=== PATIENT | female | born 1980 | race Caucasian/White ===

== ENCOUNTER 2019-07-07 17:31 | Observation (INO) ==
[2019-07-07] MEDS ORDERED: *HR* OxyCODONE/APAP 5/325 TABLET PO ONE (18:07)
[2019-07-07] MEDS ORDERED: Lidocaine 1% 20 ML MDV INFILT ONE (18:07)
[2019-07-07] MEDS ORDERED: Tdap (Boostrix) Vaccine 0.5 ML SYRINGE IM ONE (18:08)
--- NOTE | 2019-07-07 18:12 | Emergency Department Note ---
Disposition Clinical Impression: Abscess of skin or subcutaneous tissue Qualifiers: Site of cutaneous abscess: extremity Site of cutaneous abscess of extremity: upper extremity Laterality: right Qualified Code(s): L02.413 - Cutaneous abscess of right upper limb Disposition: Admitted As Inpatient Condition: Fair Time of Disposition: 20:57 Skin/Abscess/FB HPI Chief complaint: ED Skin/Abscess/Foreign Body Stated complaint: abscess Time Seen by Provider: 07/07/19 18:02 Source: patient Mode of arrival: ambulatory Limitations: no limitations Nursing Notes Reviewed: Yes Vital Signs Reviewed: Yes HPI Narrative: Nontoxic-appearing 39-year-old female presents for evaluation of a abscess to the medial aspect of the right antecubital region. She states that she was seen on 07/02/19 at this facility for the same. At that time, an ultrasound to a discernible drainable fluid collection. Findings consistent with cellulitis. She was discharged home on clindamycin and tramadol. She states she has been taking the clindamycin but never got tramadol filled. She denies any fever or chills but does complain of some nausea. Tetanus immunization status is not up-to-date. She denies any IV drug use. Pt Subjective Complaint: abscess/boil Onset (ago): day(s) Location: RUE Severity: moderate Severity scale (1-10): 5 Quality: aching Consistency: constant, Worsening Improves with: none Worsens with: palpation, movement Associated symptoms: Reports: nausea. Denies: fever, chills Treatments prior to arrival: antibiotic Home Medications Medication Instructions Recorded Confirmed FLUoxetine HCl [PROzac] 20 mg PO DAILY 07/07/19 07/07/19 Previous Rx's Medication Instructions Recorded Clindamycin [Cleocin] 300 mg PO Q6HR 10 Days #80 capsule 07/02/19 Allergies Allergy/AdvReac Type Severity Reaction Status Date / Time aspirin Allergy See Verified 07/11/15 13:21 Comments naproxen Allergy Itching Verified 07/11/15 13:20 Penicillins AdvReac unknown Verified 03/21/16 13:34 All systems ED: reviewed and negative except as stated. Review of Systems: As Per HPI Constitutional: Denies: fever, chills, weakness, weight change Eyes: Denies: eye pain, eye discharge, vision change ENT ED: Denies: ear pain, throat pain, dental pain, hearing loss, epistaxis, congestion, dysphagia Cardiovascular: Denies: chest pain, palpitations, dyspnea on exertion, edema, syncope Respiratory: Denies: cough, dyspnea, wheezes, hemoptysis, stridor Gastrointestinal: Denies: abdominal pain, nausea, vomiting, diarrhea, constipation, hematemesis, melena, hematochezia Genitourinary: Denies: dysuria, frequency, hematuria, discharge Musculoskeletal: Denies: back pain, neck pain, arthralgia, myalgia Integumentary: Reports: as per HPI, other (Right antecubital region abscess). Denies: rash, abrasion, lesions Neurological: Denies: headache, weakness, numbness, paresthesias, confusion, abnormal gait, vertigo Psychiatric: Denies: anxiety, depression, suicidal thoughts, homicidal thoughts, auditory hallucinations, visual hallucinations Endocrine: Denies: fatigue Hematological/Lymphatic: Denies: easy bleeding, easy bruising Allergic/Immunologic: Denies: facial swelling, urticaria Past Medical History - Past Medical History Attestation: Yes The following information was validated with the patient. 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 Absent: conjunctival injection - ENT ENT exam: mucous membranes moist - Neck Neck exam: Present: normal inspection, full ROM - Chest Chest inspection: Present: normal inspection, symmetric chest wall rise - Expanded Upper Extremity Exam Arm exam: Present: normal inspection, full ROM Elbow exam: Present: erythema, other. Absent: full ROM (Range of motion limited by pain, right elbow. The patient is unable to extend from beyond 135 degrees of the right elbow. Flexion is also slightly limited by pain as well.) Forearm/Wrist exam: Present: normal inspection, full ROM Hand exam: Present: normal inspection, full ROM Neuromotor exam: Normal: wrist extension, thumb opposition, fingers 2-5 abduction Neurosensory exam: Normal: radial nerve, ulnar nerve, 2-point discrimination Hand tendon exam: Normal: flexor digitorum profundus (location), extensor tendon (location) Vascular exam: Normal: capillary refill, radial pulse, ulnar pulse - Neurological Exam Neurological exam: Present: alert, oriented X3, normal gait - Psychiatric Psychiatric exam: Present: normal affect, normal mood - Skin Skin exam: Present: warm, dry, intact - Expanded Skin Exam 1 - Approximate 1 cm x 2 similar area of induration noted with palpable f luctuance. Moderate overlying erythema. No spontaneous discharge or drainage. Course Course Narrative: I spoke with Dr. Philippe, general surgeon on-call. He recommends attempts at shallow incision and drainage for symptomatic relief. He is agreeable with admission to the hospital service for in-house surgery consultation and IV antibiotics. 2049: I spoke with the admitting hospitalist who has accepted the patient for admission to the hospitalist care with in-house surgery consultation. 2119: Dr. Caballero performed superficial incision with #11 blade scalpe. Gentle traction applied. Large amount of purulent drainage expressed. Vital Signs Temperature 98.6 F 07/07/19 17:45 Pulse Rate 71 07/07/19 17:45 Respiratory Rate 18 07/07/19 17:45 Blood Pressure 110/73 07/07/19 17:45 O2 Sat by Pulse Oximetry 96 07/07/19 17:45 Temperature 97.9 F 07/07/19 22:22 Pulse Rate 59 07/07/19 22:22 Respiratory Rate 18 07/07/19 22:22 Blood Pressure 121/86 07/07/19 22:22 O2 Sat by Pulse Oximetry 96 07/07/19 22:22 Oxygen Delivery Oxygen Delivery Room Air Skin/Abscess/Foreign Body - Medical Records Medical records reviewed: Yes I reviewed the patient's medical records. - Lab Data Lab results reviewed: Yes I reviewed the patient's lab results. Lab results narrative: Lab Results 07/07/19 07/07/19 07/07/19 Range/Units 18:38 18:38 18:38 WBC 6.7 (4.3-11.1) K/mcL RBC 4.23 (3.82-4.97) M/mcL Hgb 14.1 (11.5-15.4) g/dL Hct 41.3 (35.3-44.9) % MCV 97.6 (83.0-100.0) fL MCH 33.3 (28.0-33.3) pg MCHC 34.1 (31.6-35.5) g/dL RDW 11.8 (11.5-14.5) % Plt Count 222 (140-400) K/mcL MPV 9.6 (9.4-12.4) fL Immature Gran % 0.3 (0-4) % Seg Neutrophils % 55.3 % Lymphocytes % 35.2 % Monocytes % 7.0 % Eosinophils % 1.8 % Basophils % 0.4 % Neutrophils # 3.7 (1.6-8.9) K/mcL Lymphocytes # 2.4 (0.6-4.6) K/mcL Monocytes # 0.5 (0.0-1.3) K/mcL Eosinophils # 0.1 (0.0-0.6) K/mcL Basophils # 0.0 (0.0-0.2) K/mcL ESR (0-15) mm/hr Sodium 138 (136-145) mEq/L Potassium 3.9 (3.5-5.1) mEq/L Chloride 106 (98-107) mEq/L Carbon Dioxide 28 (23-29) mEq/L BUN 20 (6-20) mg/dL Creatinine 0.72 (0.60-1.20) mg/dL Est GFR ( Amer) > 60 (> 60) Est GFR (Non-Af Amer) > 60 (> 60) BUN/Creatinine Ratio 28 H (6-26) Glucose 79 (70-105) mg/dL Calculated Osmolality 288 (280-300) Lactic Acid (0.5-2.2) mmol/L Calcium 8.9 (8.6-10.3) mg/dL C-Reactive Protein 8 (Less than 10) mg/L Serum , Qual Negative (Negative) 07/07/19 07/07/19 Range/Units 18:38 19:54 WBC (4.3-11.1) K/mcL RBC (3.82-4.97) M/mcL Hgb (11.5-15.4) g/dL Hct (35.3-44.9) % MCV (83.0-100.0) fL MCH (28.0-33.3) pg MCHC (31.6-35.5) g/dL RDW (11.5-14.5) % Plt Count (140-400) K/mcL MPV (9.4-12.4) fL Immature Gran % (0-4) % Seg Neutrophils % % Lymphocytes % % Monocytes % % Eosinophils % % Basophils % % Neutrophils # (1.6-8.9) K/mcL Lymphocytes # (0.6-4.6) K/mcL Monocytes # (0.0-1.3) K/mcL Eosinophils # (0.0-0.6) K/mcL Basophils # (0.0-0.2) K/mcL ESR 15 (0-15) mm/hr Sodium (136-145) mEq/L Potassium (3.5-5.1) mEq/L Chloride (98-107) mEq/L Carbon Dioxide (23-29) mEq/L BUN (6-20) mg/dL Creatinine (0.60-1.20) mg/dL Est GFR ( Amer) (> 60) Est GFR (Non-Af Amer) (> 60) BUN/Creatinine Ratio (6-26) Glucose (70-105) mg/dL Calculated Osmolality (280-300) Lactic Acid 0.4 L (0.5-2.2) mmol/L Calcium (8.6-10.3) mg/dL C-Reactive Protein (Less than 10) mg/L Serum , Qual (Negative) Result diagrams: 07/07/19 18:38 07/07/19 18:38 Lab Results 07/07/19 07/07/19 07/07/19 Range/Units 18:38 18:38 18:38 WBC 6.7 (4.3-11.1) K/mcL RBC 4.23 (3.82-4.97) M/mcL Hgb 14.1 (11.5-15.4) g/dL Hct 41.3 (35.3-44.9) % MCV 97.6 (83.0-100.0) fL MCH 33.3 (28.0-33.3) pg MCHC 34.1 (31.6-35.5) g/dL RDW 11.8 (11.5-14.5) % Plt Count 222 (140-400) K/mcL MPV 9.6 (9.4-12.4) fL Immature Gran % 0.3 (0-4) % Seg Neutrophils % 55.3 % Lymphocytes % 35.2 % Monocytes % 7.0 % Eosinophils % 1.8 % Basophils % 0.4 % Neutrophils # 3.7 (1.6-8.9) K/mcL Lymphocytes # 2.4 (0.6-4.6) K/mcL Monocytes # 0.5 (0.0-1.3) K/mcL Eosinophils # 0.1 (0.0-0.6) K/mcL Basophils # 0.0 (0.0-0.2) K/mcL ESR (0-15) mm/hr Sodium 138 (136-145) mEq/L Potassium 3.9 (3.5-5.1) mEq/L Chloride 106 (98-107) mEq/L Carbon Dioxide 28 (23-29) mEq/L BUN 20 (6-20) mg/dL Creatinine 0.72 (0.60-1.20) mg/dL Est GFR ( Amer) > 60 (> 60) Est GFR (Non-Af Amer) > 60 (> 60) BUN/Creatinine Ratio 28 H (6-26) Glucose 79 (70-105) mg/dL Calculated Osmolality 288 (280-300) Lactic Acid (0.5-2.2) mmol/L Calcium 8.9 (8.6-10.3) mg/dL C-Reactive Protein 8 (Less than 10) mg/L Serum , Qual Negative (Negative) 07/07/19 07/07/19 Range/Units 18:38 19:54 WBC (4.3-11.1) K/mcL RBC (3.82-4.97) M/mcL Hgb (11.5-15.4) g/dL Hct (35.3-44.9) % MCV (83.0-100.0) fL MCH (28.0-33.3) pg MCHC (31.6-35.5) g/dL RDW (11.5-14.5) % Plt Count (140-400) K/mcL MPV (9.4-12.4) fL Immature Gran % (0-4) % Seg Neutrophils % % Lymphocytes % % Monocytes % % Eosinophils % % Basophils % % Neutrophils # (1.6-8.9) K/mcL Lymphocytes # (0.6-4.6) K/mcL Monocytes # (0.0-1.3) K/mcL Eosinophils # (0.0-0.6) K/mcL Basophils # (0.0-0.2) K/mcL ESR 15 (0-15) mm/hr Sodium (136-145) mEq/L Potassium (3.5-5.1) mEq/L Chloride (98-107) mEq/L Carbon Dioxide (23-29) mEq/L BUN (6-20) mg/dL Creatinine (0.60-1.20) mg/dL Est GFR ( Amer) (> 60) Est GFR (Non-Af Amer) (> 60) BUN/Creatinine Ratio (6-26) Glucose (70-105) mg/dL Calculated Osmolality (280-300) Lactic Acid 0.4 L (0.5-2.2) mmol/L Calcium (8.6-10.3) mg/dL C-Reactive Protein (Less than 10) mg/L Serum , Qual (Negative) - Radiology Data Radiology results reviewed: Yes I reviewed the patient's radiology results. Elbow CT 07/07/19 19:56 IMPRESSION: 1. Rim enhancing fluid collection at the antecubital fossa measuring 1.9 x 3.0 x 2.9 cm most consistent with abscess. There is surrounding subcutaneous edema compatible with cellulitis. 2. No acute osseous abnormality or CT evidence for osteomyelitis at this time. D/ / Marquez Blake MD / Marquez Blake MD Interpreting Provider: Marquez Blake MD Attestation Statement - Attestation Attestation: I, Petros Caballero, examined this patient and my medical decision-making was reviewed with the PARCEL POST TRUCK DRIVER/PA/Advanced Practice Nurse/Resident Physician. I agree with the documented findings, disposition and treatment plan as described except to the extent set forth below. 39-year-old female presents emergency Department with concerns of right arm pain. Patient states she had pain and erythema to the right antecubital area. This is progressed and worsened over the past few days. She has been taking clindamycin at home which was prescribed by the urgent care. Symptoms have continued to worsen. Patient denies IV drug use. CT of the right upper extremity shows a large abscess that surrounds the brachial/cephalic vein. We spoke with the surgeon who will see the patient hospital. Patient was started on antibiotics in the emergency department. She will be admitted to the ospitalist for further care and evaluation. Procedure note: Incision and drainage of abscess Indication: Indurated erythematous area located _right antecubital area___ which is fluctuant with probable pus. Time out: A timeout was completed verifying consent obtained, correct patient, procedure, site, positioning, and correct supplies were present. Procedure: Patient was positioned, prepped and draped in usual sterile fashion. An 11 blade scalpel was used to make an approximately___0.5__centimeter incision across the body of the abscess. A very superficial incision was made to avoid the underlying vasculature. This was performed without anesthesia as it was only a very small incision over the top of the abscess. This was done after discussion with the patient. Patient agreed with plan of action. Following evacuation of the abscess cavity. Finally, the abscess cavity was packed with iodoform gauze packing and dressed with a 2 x 2 gauze pad. Blood loss: Minimal Patient tolerated the procedure well. Complications: None
[2019-07-07] MEDS ORDERED: Isovue-370 500 ML BOTTLE IVP ONE (18:19)
[2019-07-07 19:02] LABS: Basophils % 0.4 %; Eosinophils # 0.1 K/mcL (0.0-0.6); Eosinophils % 1.8 %; Hematocrit 41.3 % (35.3-44.9); Hemoglobin 14.1 g/dL (11.5-15.4); Immature Granulocytes % 0.3 % (0-4); Lymphocytes # 2.4 K/mcL (0.6-4.6); Lymphocytes % 35.2 %; Mean Corpuscular HGB Conc 34.1 g/dL (31.6-35.5); Mean Corpuscular Hemoglobin 33.3 pg (28.0-33.3); Mean Corpuscular Volume 97.6 fL (83.0-100.0); Mean Platelet Volume 9.6 fL (9.4-12.4); Monocytes # 0.5 K/mcL (0.0-1.3); Neutrophils # 3.7 K/mcL (1.6-8.9); Platelet Count 222 K/mcL (140-400); Red Blood Count 4.23 M/mcL (3.82-4.97); Red Cell Distribution Width 11.8 % (11.5-14.5); Segmented Neutrophils % 55.3 %; White Blood Count 6.7 K/mcL (4.3-11.1)
[2019-07-07 19:16] LABS: BUN/Creatinine Ratio 28 (6-26); Blood Urea Nitrogen 20 mg/dL (6-20); C-Reactive Protein 8 mg/L (Less than 10); Calcium 8.9 mg/dL (8.6-10.3); Carbon Dioxide 28 mEq/L (23-29); Chloride 106 mEq/L (98-107); Glucose 79 mg/dL (70-105); Osmolality,Calculated 288 (280-300); Potassium 3.9 mEq/L (3.5-5.1); Sodium 138 mEq/L (136-145); eGFR For African Americans > 60 (> 60); eGFR For Non-African Americans > 60 (> 60)
[2019-07-07] MEDS ORDERED: *HR* FentaNYL (PF) 100 MCG/2 ML VIAL IVP ONE (19:35)
[2019-07-07] MEDS ORDERED: Cefepime HCl 2,000 MG in 0.9 % Sodium Chloride Mini Bag 100 ML IVPB STA (20:01)
[2019-07-07] MEDS ORDERED: *HR* HYDROmorphone (PF) 1 MG/ML SYRINGE IVP ONE (21:30)
--- NOTE | 2019-07-07 22:17 | Internal Med History&Physical ---
Date of Encounter: 07/08/19 Time of Encounter: 22:10 Internal Medicine - H&P: HPI Chief complaint: right medial ac abscess Admitted From: Home Plans for Post Hospital Care: Home History of present illness: Ms. Contreras is a 39 year old female with past medical history of depression, class I obesity presented to the ED for right arm abscess. Patient reported 8 days ago in the evening noticed on her right arm suddenly started to hurt what looked like a insect bite or ingrown Hair. Spouse reported that there has been spiders noted in the hospital. Patient reported that the right medial arm pain continued to progress and went to urgent care and then our ED and was discharged on clindamycin which the patient has been taking for 4 days, icing it with no improvement, exacerbated with movement and no association with fever, chills, nausea, vomiting, chest pain, shortness of breath, bowel pain, diarrhea or dysuria. Patient came today due to worsening progressive pain, edema and erythema despite oral antibiotics. Reviewed patient's past medical, surgical, family and social history. Patient also reported pain radiating to the right arm shoulder and neck. Family history + for [place] Syndrome maternal ly. CODE STATUS reported full code. Past Med Surg Social Fam HX - Past Medical History Medical history: other Additional medical history: CLOTTING DISORDER Psychiatric history: anxiety - Past Surgical History Additional surgical history: Tubal Ligation - Social History Smoking Status: Current every day smoker Smokeless Tobacco Status: No Alcohol use: occasionally Drug use: none, other Internal Medicine - H&P: Meds Clindamycin [Cleocin] 300 mg PO Q6HR 10 Days #80 capsule 07/02/19 [Rx] FLUoxetine HCl [PROzac] 20 mg PO DAILY 07/07/19 [History] Allergy/AdvReac Type Severity Reaction Status Date / Time aspirin Allergy See Verified 07/11/15 13:21 Comments naproxen Allergy Itching Verified 07/11/15 13:20 Penicillins AdvReac unknown Verified 03/21/16 13:34 All Systems PM: A 10-system review of systems was performed and is negative for pertinent findings except as documented above in the HPI. Review of systems: General: No unintentional weightloss, No fever Head: No headahce, No injury. Ears: No discharge, No earache Eyes: No drainage, No eye pain Mouth and Throat: No new ulcers, No pain Nose and Sinus: No new congestion, No pain, Respiratory: No cough, No sputum production, No dyspnea Cardiovascular: No chest pain, No palpitations. Gastrointestinal: No nausea, No vomiting. No abdominal pain. Genital Tract: No discharge, No pain Urinary Tract: No dysuria, No discharge. MSK: +new/worsening joint pain, + new/worsening muscle ache. Endocrine: No cold intolerance, No polyuria Psychological: No suicidal, No homocidal ideation. - Constitutional Vitals: Temp Pulse Resp BP Pulse Ox 98.9 F 104 20 148/101 97 07/07/19 21:42 07/07/19 20:26 07/07/19 21:42 07/07/19 21:42 07/07/19 20:26 Exam: General Appearance: Appearing as age, well-nourished in mild acute distress. Head: Atraumatic normocephalic Skin: Normal texture, normal turgor, warm, dry. Right medial arm erythema, tenderness, minimal drainage. Eyes: Conjunctivae not pale with no erythema, drainage, or ulcers. Anicteric. Neck: No Lymphadenopathy in the anterior/posterior cervical chain. No thyromegaly, masses or ulcers. Trachea midline. Heart: RRR, no murmurs. Capillary refill 3 seconds Lungs: No accessory muscle usage, lungs clear to auscultation bilaterally, no wheezes or crackles. Extremities: No pitting edema, No clubbing, No cyanosis. Abdomen: Non-distended, normoactive bowel sounds. non-tender to palpation, morbid obese Neuro: AOx3 with no new sensory loss or focal deficits. MSK: Strength 5/5 Upper extremity left. Strength 5/5 Lower extremity equal bilaterally. decreased Passive range of motion and pain with full extension of the elbow right arm. No cervical midline tenderness Internal Med - H&P Results - Labs CBC & Chem 7: 07/07/19 18:38 07/07/19 18:38 Labs: Short CBC 07/07/19 Range/Units 18:38 WBC 6.7 (4.3-11.1) K/mcL Hgb 14.1 (11.5-15.4) g/dL Hct 41.3 (35.3-44.9) % Plt Count 222 (140-400) K/mcL Neutrophils # 3.7 (1.6-8.9) K/mcL BMP 07/07/19 18:38 Sodium 138 Potassium 3.9 Chloride 106 Carbon Dioxide 28 BUN 20 Creatinine 0.72 Glucose 79 Calcium 8.9 - Impressions ITS Impressions Elbow CT 07/07/19 19:56 IMPRESSION: 1. Rim enhancing fluid collection at the antecubital fossa measuring 1.9 x 3.0 x 2.9 cm most consistent with abscess. There is surrounding subcutaneous edema compatible with cellulitis. 2. No acute osseous abnormality or CT evidence for osteomyelitis at this time. D/ / Marquez Blake MD / Marquez Blake MD Interpreting Provider: Marquez Blake MD - Summary of Assessment and Plan Summary of Assessment and Plan: 1.Right medial abscess purulent: Failed outpatient clindamycin by mouth. surgery consultation. US UE right pending. IV vancomycin and ceftriaxone continue to monitor 2.Uncontrolled hypertension: Secondary to pain. Continue to monitor 3.Class I obesity, Nutrition consultation 4.Cigarette smoker: Negative patch ordered. DVT prophylaxis: Heparin Disposition likely less than 2 days stay - Time Spent With Patient Total time spent is greater than 39 minutes 50% in coordination of care (as documented) at patient's floor/unit and/or counseling patient: Greater than 35 minutes
[2019-07-07] MEDS ORDERED: Naloxone 0.4 MG/ML INJ IVP PRN (22:58)
[2019-07-07] MEDS ORDERED: Ondansetron ODT 4 MG TAB.RAPDIS SL PRN (22:58)
[2019-07-07] MEDS ORDERED: Nicotine 2 MG GUM BC PRN (22:58)
[2019-07-07] MEDS ORDERED: Ringers Solution, Lactated 1,000 ML IVC SCH (23:00)
[2019-07-07] MEDS: Nicotine 21 MG PATCH.TD24 TD SCH (23:16)
[2019-07-08 05:16] LABS: Basophils % 0.7 %; Eosinophils # 0.1 K/mcL (0.0-0.6); Hematocrit 39.8 % (35.3-44.9); Hemoglobin 13.2 g/dL (11.5-15.4); Immature Granulocytes % 0.2 % (0-4); Lymphocytes # 1.8 K/mcL (0.6-4.6); Lymphocytes % 32.5 %; Mean Corpuscular HGB Conc 33.2 g/dL (31.6-35.5); Mean Corpuscular Hemoglobin 32.5 pg (28.0-33.3); Mean Platelet Volume 9.4 fL (9.4-12.4); Monocytes # 0.4 K/mcL (0.0-1.3); Monocytes % 7.8 %; Neutrophils # 3.2 K/mcL (1.6-8.9); Platelet Count 191 K/mcL (140-400); Red Blood Count 4.06 M/mcL (3.82-4.97); Red Cell Distribution Width 11.9 % (11.5-14.5); Segmented Neutrophils % 56.8 %; White Blood Count 5.5 K/mcL (4.3-11.1)
[2019-07-08 05:38] LABS: BUN/Creatinine Ratio 26 (6-26); Blood Urea Nitrogen 17 mg/dL (6-20); Calcium 8.3 mg/dL (8.6-10.3); Carbon Dioxide 26 mEq/L (23-29); Chloride 108 mEq/L (98-107); Glucose 105 mg/dL (70-105); Magnesium 1.9 mg/dL (1.6-2.6); Osmolality,Calculated 290 (280-300); Phosphorous 3.7 mg/dL (2.7-4.5); Potassium 3.8 mEq/L (3.5-5.1); Sodium 139 mEq/L (136-145); eGFR For African Americans > 60 (> 60); eGFR For Non-African Americans > 60 (> 60)
[2019-07-08] MEDS ORDERED: *HR* Heparin 5,000 UNIT/ML VIAL SQ SCH (06:00)
[2019-07-08 07:16] VITALS: BP 134/73
[2019-07-08] MEDS: Nicotine 21 MG PATCH.TD24 TD SCH (08:34)
--- NOTE | 2019-07-08 09:22 | Discharge Summary ---
- NOTES TO OUTPATIENT PROVIDER Notes to Outpatient Provider: f/u with PCP within a week. Orders not resulted at time of discharge: Pending orders 07/07/19 19:00 Culture,Blood [BC] Stat 07/07/19 22:00 Culture,Wound,with Gram Stain [] Routine Date of Encounter: 07/08/19 Time of Encounter: 09:20 - Discharge Diagnosis (1) Abscess of skin or subcutaneous tissue Priority: Primary Status: Acute Qualifiers: Site of cutaneous abscess: extremity Site of cutaneous abscess of extremity: upper extremity Laterality: right Qualified Code(s): L02.413 - Cutaneous abscess of right upper limb Hospital course: Ms. Contreras is a 39 year old female with past medical history of depression, class I obesity presented to the ED for right arm abscess. Patient reported 8 days ago in the evening noticed on her right arm suddenly started to hurt what looked like a insect bite or ingrown Hair. Spouse reported that there has been spiders noted in the house. Patient reported that the right medial arm pain continued to progress and went to urgent care and then our ED and was discharged on clindamycin which the patient has been taking for 4 days, no association with fever, chills, nausea, vomiting, chest pain, shortness of breath, bowel pain, diarrhea or dysuria. Patient came today due to worsening progressive pain, edema and erythema despite oral antibiotics. CT right arm showed small fluid collection suspicious for abscess. Received one dose of IV Vancomycin. Underwent bedside I/D, dressing was intact upon my assessment. Pain has improved. Pt afebrile, wbc normal. She is discharged home and was instructed to continue taking Clindamycin as prescribed. F/u with PCP within a week for wound cx result. Discharge discussed with: patient Time spent discussing smoking cessation with patient: more than 10 minutes - Time Spent with Patient Total time spent providing and/or coordinating discharge services: Time spent: Greater than 30 minutes - Discharge Medications Prescriptions: Continued Clindamycin [Cleocin] 300 mg PO Q6HR 10 Days #80 capsule FLUoxetine HCl [Prozac] 20 mg PO DAILY Home Medications: Clindamycin [Cleocin] 300 mg PO Q6HR 10 Days #80 capsule 07/02/19 [Rx] FLUoxetine HCl [Prozac] 20 mg PO DAILY 07/07/19 [History] Allergies/Adverse Reactions: Allergy/AdvReac Type Severity Reaction Status Date / Time aspirin Allergy See Verified 07/11/15 13:21 Comments naproxen Allergy Itching Verified 07/11/15 13:20 Penicillins AdvReac unknown Verified 03/21/16 13:34 Date of admission: 07/07/19 21:00 Primary care physician: Seamus Gamez DO Consults: 07/07/19 20:54 Consult to Surgery [CONS] Stat Consulting Provider: Acute Care Surgery Reason for Consult: right AC abscess Time Notified: 20:56 Call Completed: Yes 07/07/19 22:58 Consult to Wound Care [CONS] Routine Reason for Consult: culture abscess Call Completed: No 07/08/19 04:41 Consult to Nutrition [CONS] Routine Comment: Consulting Provider: NUTRITION Reason for Dietary Consult: Other Other:: Severe malnutrition. Anticipated date of discharge: 07/08/19 - Constitutional Vitals: Temp Pulse Resp BP Pulse Ox 97.8 F 59 17 134/73 96 07/08/19 07:14 07/08/19 07:14 07/08/19 07:14 07/08/19 07:14 07/08/19 07:14 General appearance: Present: A&O X 3 Exam: General Appearance: Appearing as age, well-nourished in mild acute distress. Head: Atraumatic normocephalic Skin: Normal texture, normal turgor, warm, dry. Right medial arm erythema, tenderness, minimal drainage. Eyes: Conjunctivae not pale with no erythema, drainage, or ulcers. Anicteric. Neck: No Lymphadenopathy in the anterior/posterior cervical chain. No thyromegaly, masses or ulcers. Trachea midline. Heart: RRR, no murmurs. Capillary refill 3 seconds Lungs: No accessory muscle usage, lungs clear to auscultation bilaterally, no wheezes or crackles. Extremities: No pitting edema, No clubbing, No cyanosis. Abdomen: Non-distended, normoactive bowel sounds. non-tender to palpation, morbid obese Neuro: AOx3 with no new sensory loss or focal deficits. MSK: Strength 5/5 Upper extremity left. Strength 5/5 Lower extremity equal bilaterally. decreased Passive range of motion and pain with full extension of the elbow right arm. No cervical midline tenderness - Patient Status Disposition: Home, Self-Care Condition: Fair Functional capacity at discharge: independent ambulation Overall status at discharge: patient is progressing back to baseline - Discharge Instructions Follow Up With: Seamus Jean DO [Primary Care Provider] - - Diet and Activity Activity: increase activity as tolerated Diet: advance to your usual diet
== END 2019-07-08 09:42 | disposition home or self-care (01) ==
LOC: 3BNU 17:31 → EMEROOARM 17:31 → 3BNU 21:13
PROVIDERS: ADMIT Internal Medicine; ATTEND Internal Medicine